=== PATIENT | male | born 1990 | race Caucasian/White ===

== ENCOUNTER 2019-03-26 20:25 | Emergency (ER) | payer OTHER ==
[~2019-03-26] VITALS: Ht 177.8 cm; Wt 83.9 kg
[2019-03-26] MEDS ORDERED: IBUPROFEN 600600 M1 PO (21:21)
[2019-03-26 21:44] VITALS: BP 153/96
== END 2019-03-26 21:40 | disposition home or self-care (01) ==
LOC: ER 20:25
DX: S63.591A Other specified sprain of right wrist, initial encounter (principal); R01.1 Cardiac murmur, unspecified; I10 Essential (primary) hypertension; W00.0XXA Fall on same level due to ice and snow, initial encounter; Y92.89 Other specified places as the place of occurrence of the external cause; Y93.89 Activity, other specified; Y99.8 Other external cause status

== ENCOUNTER 2019-11-10 00:14 | Emergency (ER) | payer OTHER ==
[~2019-11-10] VITALS: Ht 177.8 cm; Wt 83.9 kg
[~2019-11-10 00:14] MED LIST: IBUPROFEN 600600 M1 PO
[2019-11-10] MEDS ORDERED: NORCO 5-325 TA1 EAC2 PO (00:45)
[2019-11-10] MEDS ORDERED: FLEXERIL PO (00:45)
[2019-11-10 01:10] VITALS: BP 146/98
== END 2019-11-10 01:11 | disposition home or self-care (01) ==
LOC: ER 00:14
DX: S16.1XXA Strain of muscle, fascia and tendon at neck level, initial encounter (principal); Z79.1 Long term (current) use of non-steroidal anti-inflammatories (NSAID); X50.1XXA Overexertion from prolonged static or awkward postures, initial encounter; Y93.89 Activity, other specified; Y92.89 Other specified places as the place of occurrence of the external cause; Y99.8 Other external cause status